=== PATIENT | male | born 1990 | race Caucasian/White ===

== ENCOUNTER 2017-06-15 12:09 | Emergency (ER) | payer SELFPAY ==
[~2017-06-15 12:09] MED LIST: Sodium Chloride 0.9% 1,000 ML BAG ONE
[2017-06-15] MEDS ORDERED: Ondansetron HCl/PF 4 MG/2 ML Vial ONE (12:58)
[2017-06-15] MEDS ORDERED: Fentanyl 100 MCG/2 ML VIAL ONE (12:58)
[2017-06-15] MEDS ORDERED: Famotidine In NaCl 20 mg/50 ml Premix Bag ONE (12:58)
[2017-06-15] MEDS ORDERED: Lidocaine Viscous Sol 2% 15 ml UD Cup ONE (13:54)
[2017-06-15] MEDS ORDERED: Milk Of Magnesia 30 ML UDCUP ONE (13:54)
== END 2017-06-15 14:10 | disposition home or self-care (01) ==
LOC: MADERS 12:09
DX: B34.9 Viral infection, unspecified (principal)
CPT/HCPCS: 96361; 96374; 96375; J2405; J3010; J7050

== ENCOUNTER 2017-12-24 16:17 | Emergency (ER) | payer BC, SELFPAY ==
[2017-12-24] MEDS ORDERED: Ketorolac Tromethamine 60 MG/2 ML VIAL ONE (16:44)
[2017-12-24] MEDS ORDERED: Cyclobenzaprine 10 MG TAB ONE (16:44)
[2017-12-24] MEDS ORDERED: HYDROcodone/Acetaminophen 10/325 mg Tablet ONE (16:44)
== END 2017-12-24 17:20 | disposition home or self-care (01) ==
LOC: MADERS 16:17
DX: S39.012A Strain of muscle, fascia and tendon of lower back, initial encounter (principal); M79.1 Myalgia; X50.0XXA Overexertion from strenuous movement or load, initial encounter
CPT/HCPCS: 96372; J1885

== ENCOUNTER 2021-01-27 18:00 | Emergency (ER) | payer OTHER, BC ==
[2021-01-27] MEDS ORDERED: Ketorolac Tromethamine 60 MG/2 ML VIAL ONE (19:23)
[2021-01-28 16:15] LABS: SARS-CoV-2 PCR by NAA DETECTED (NotDetected)
== END 2021-01-27 19:27 | disposition home or self-care (01) ==
LOC: MADERS 18:00
DX: U07.1 COVID-19 (principal)
CPT/HCPCS: 96372; 99284; J1885; U0003; U0005

== ENCOUNTER 2021-02-01 21:52 | Emergency (ER) | payer BC ==
[2021-02-01] MEDS ORDERED: Ibuprofen 800 MG TAB ONE (23:12)
[2021-02-01] MEDS ORDERED: Acetaminophen 500 MG TAB ONE (23:12)
[2021-02-01 23:20] LABS: ALT (SGPT) 45 U/L (8-55); AST (SGOT) 47 U/L (5-34); Albumin 3.6 g/dL (3.5-5.0); Alkaline Phosphatase 53 U/L (40-110); Anion Gap 14 mmol/L (10-20); BUN (Urea Nitrogen) 8 mg/dL (8.9-20.6); Bilirubin, Total 0.4 mg/dL (0.2-1.2); Calc. Creatinine Clearance 0 mL/min (70-130); Calcium 8.5 mg/dL (7.8-10.44); Carbon Dioxide 25 mmol/L (22-29); Chloride 101 mmol/L (98-107); Globulin 3.6 g/dL (2.4-3.5); Glucose 125 mg/dL (70-105); Potassium 3.5 mmol/L (3.5-5.1); Protein, Total 7.2 g/dL (6.0-8.3); Sodium 136 mmol/L (136-145)
[2021-02-01 23:32] LABS: #Lymphocytes 0.7 thou/uL (1.20-3.40); #Monocytes 0.3 thou/uL (0.11-0.59); %Basophils 0.2 % (0.0-1.0); %Eosinophils 0.1 % (0.0-10.0); %Lymphocytes 13.9 % (21.0-51.0); %Monocytes 5.3 % (0.0-10.0); %Neutrophils 80.5 % (42.0-75.0); Hemoglobin 14.4 g/dL (14.0-18.0); Mean Corpuscular HGB CONC 31.1 g/dL (32.0-36.0); Mean Corpuscular Hemoglobin 27.9 pg (27.0-31.0); Mean Corpuscular Volume 89.6 fL (78.0-98.0); Mean Platelet Volume 10.9 fL (7.4-10.4); Platelet Count 114 thou/uL (130-400); Platelet Morphology Comment Appears Adequate; RBC Distribution Width 12.9 % (11.5-14.5); RBC Morphology Normal; Red Blood Cell (RBC) Count 5.16 mill/uL (4.70-6.10)
[2021-02-01] MEDS ORDERED: Dexamethasone 10 MG/ML VIAL ONE (23:37)
[2021-02-01] MEDS ORDERED: Ondansetron PF 4 MG/2 ML Vial ONE (23:37)
[2021-02-02] MEDS ORDERED: Azithromycin 500 MG VIAL ONE (00:28)
[2021-02-02] MEDS ORDERED: Benzonatate 100 MG CAP ONE (00:28)
== END 2021-02-02 01:12 | disposition short-term general hospital (02) ==
LOC: MADERS 21:52
DX: U07.1 COVID-19 (principal); J96.91 Respiratory failure, unspecified with hypoxia; Z79.1 Long term (current) use of non-steroidal anti-inflammatories (NSAID)
CPT/HCPCS: 36415; 71045; 80053; 83605; 84484; 85025; 93005; 96374; 96375; J0456; J1100; J2405; J7050

== ENCOUNTER 2021-10-04 09:59 | Emergency (ER) | payer BC, SELFPAY ==
[~2021-10-04 09:59] MED LIST changes: -Sodium Chloride 0.9% 1,000 ML BAG ONE; +Sodium Chloride 0.9% 100 ML BAG ONE
[2021-10-04] MEDS ORDERED: Morphine 4 MG/ML VIAL ONE (10:45)
[2021-10-04] MEDS ORDERED: Diazepam 10 MG/2 ML SYRINGE ONE (10:46)
[2021-10-04] MEDS ORDERED: Iopamidol 370 76% 125 ML VIAL FS ONE (11:12)
== END 2021-10-04 13:25 | disposition home or self-care (01) ==
LOC: MADERS 09:59
DX: S10.93XA Contusion of unspecified part of neck, initial encounter (principal); R20.2 Paresthesia of skin; E66.9 Obesity, unspecified; W21.03XA Struck by baseball, initial encounter
CPT/HCPCS: 70498; 96374; 96375; J2270; J3360; Q9967

== ENCOUNTER 2023-05-22 13:53 | Emergency (ER) | payer SELFPAY ==
[2023-05-22] MEDS ORDERED: Ibuprofen 800 MG TAB ONE (15:32)
== END 2023-05-22 15:38 | disposition home or self-care (01) ==
LOC: MADERS 13:53
DX: S63.501A Unspecified sprain of right wrist, initial encounter (principal); X50.0XXA Overexertion from strenuous movement or load, initial encounter

== ENCOUNTER 2023-10-11 07:38 | Emergency (ER) | payer OTHER, SELFPAY ==
[2023-10-11 08:09] LABS: PTT 25.9 sec (22.9-36.1)
[2023-10-11 08:18] LABS: ALT (SGPT) 21 U/L (8-55); AST (SGOT) 16 U/L (5-34); Albumin 3.9 g/dL (3.5-5.0); Alkaline Phosphatase 54 U/L (40-110); Anion Gap 13 mmol/L (10-20); BUN (Urea Nitrogen) 16 mg/dL (8.9-20.6); Bilirubin, Total 0.4 mg/dL (0.2-1.2); Calc. Creatinine Clearance 0 mL/min (70-130); Calcium 9.1 mg/dL (7.8-10.44); Carbon Dioxide 22 mmol/L (22-29); Chloride 107 mmol/L (98-107); Estimated GFR 117; Globulin 3.3 g/dL (2.4-3.5); Glucose 108 mg/dL (70-105); Potassium 4.3 mmol/L (3.5-5.1); Protein, Total 7.2 g/dL (6.0-8.3); Sodium 138 mmol/L (136-145)
[2023-10-11] MEDS ORDERED: fentaNYL 50 mcg/mL 1 mL Vial ONE (08:20)
[2023-10-11] MEDS ORDERED: Sodium Chloride 0.9% 1,000 ML ONE (08:20)
[2023-10-11 08:26] LABS: Eosinophils 3 % (0-10); Hematocrit 48.2 % (42.0-52.0); Hemoglobin 14.1 g/dL (14.0-18.0); Lymphocytes 17 % (21-51); MDiff Complete? YES; Manual Diff?? YES; Mean Corpuscular HGB CONC 29.4 g/dL (32.0-36.0); Mean Corpuscular Hemoglobin 26.8 pg (27.0-31.0); Mean Corpuscular Volume 91.5 fl (78.0-98.0); Mean Platelet Volume 7.7 fL (7.4-10.4); Monocytes 3 % (0-10); Neutrophil 53 % (42-75); Platelet Adequacy Comment Appears Adequate; Platelet Count 195 10x3/uL (130-400); RBC Distribution Width 13.6 % (11.5-14.5); RBC Morph Comment Within Normal Limits; Reactive Lymphocytes 24 % (0-10); Red Blood Cell (RBC) Count 5.27 mill/uL (4.70-6.10); White Blood Cell (WBC) Count 5.7 10x3/uL (4.8-10.8)
== END 2023-10-11 10:25 | disposition home or self-care (01) ==
LOC: MADERS 07:38
DX: R51.9 Headache, unspecified (principal); I82.402 Acute embolism and thrombosis of unspecified deep veins of left lower extremity
CPT/HCPCS: 36415; 70450; 72125; 72131; 80053; 85025; 85610; 85730; 94760; 94799; 96374; J3010; J7050